=== PATIENT | female | born 1955 | race Caucasian/White ===

== ENCOUNTER 2017-01-19 17:28 | Emergency (ER) | payer BC, OTHER ==
[~2017-01-19] VITALS: Ht 154.9 cm; Wt 50.5 kg
[~2017-01-19 17:28] MED LIST: ACIPHEX20 MG PO; FIORICET 50-321 EACH PO; HYZAAR 100-12.51 TAB PO; PERCOCET 10/3251 TAB PO; PERCOCET PO; PREMARIN PO; SYNTHROID PO; SYNTHROID88 MCG PO; VITAMIN B-1000 MCG/1 INJ; VITAMIN B12
[2017-01-19 19:00] LABS: URINE SOURCE CLEAN CATCH
[2017-01-19 19:02] LABS: URINE APPEARANCE CLOUDY; URINE BLOOD 3+ (NEG); URINE KETONE 1+ (NEG); URINE LEUKOCYTE ESTERASE 2+ (NEG); URINE NITRATE POS (NEG); URINE PH 6.5 (5-8); URINE PROTEIN 3+ (NEG)
[2017-01-19 19:08] LABS: URINE BILIRUBIN NEG (NEG); URINE GLUCOSE NEG (NORM)
[2017-01-19 19:09] LABS: MICRO INDICATED? YES; URINE COLOR RED
[2017-01-19 19:17] LABS: CULTURE INDICATED? YES; URINE BACTERIA 1+ (NEG); URINE MUCUS PRESENT; URINE RBC INNUM /[HPF] (0-2); URINE SQUAMOUS EPITHELIAL CELL OCCAS /[HPF]; URINE TRANSITIONAL EPI CELLS FEW /[HPF]; URINE WBC INNUM /[HPF] (0-5)
== END 2017-01-19 19:41 | disposition home or self-care (01) ==
LOC: SED 17:28
PROVIDERS: Physician Assistant
DX: N30.01 Acute cystitis with hematuria (principal); D64.9 Anemia, unspecified; M79.7 Fibromyalgia; Z88.2 Allergy status to sulfonamides; Z88.8 Allergy status to other drugs, medicaments and biological substances; Z91.041 Radiographic dye allergy status
CPT/HCPCS: 81003; 87086; 99283